=== PATIENT | female | born 1990 | race Caucasian/White ===

== ENCOUNTER → 2017-07-28 | Emergency (ER) | payer MEDICAID, OTHER ==
[~2017-07-28] MED LIST: IBUP-232 PO; PREN1CAP28 PO
--- NOTE | 2017-07-28 20:20 | PD ---
HPI Chief Complaint Decreased movement and dizziness, pelvic pressure Date Seen: Jul 28, 2017 Time Seen: 20:16 Travel History International Travel<30 Days: No Contact w/Intl Traveler<30Days: No Known Affected Area: No History of Present Illness HPI 26-year-old who is at 34 weeks gestation comes in complaining of decreased movement today associated with dizziness. Mild nausea but she is able to tolerate fluids well and she has normal appetite. She feels as though she is coming down with an upper respiratory infection and is demonstrating a mild cough but has been afebrile at home and no other symptoms, although other members of her family have also been symptomatic. Patient states that she's had good movement since arrival. Denies obstetrical complications this and she has and another appointment this Friday Weeks Gestation: 34 Para: 3 : 4 History Past Medical History Medical History: Denies Significant Hx Obstetric History Obstetric History Spontaneous vaginal delivery 3 Past Surgical History Surgical History: No Previous Surgery Family History Family History: Negative Social History Alcohol Use: No Tobacco Use: No Substance Abuse: No Review of Systems Except as stated in HPI: all other systems reviewed are Neg Physical Exam Narrative GENERAL: Well-nourished, well-developed patient. SKIN: Warm and dry. HEAD: Normocephalic and atraumatic. EYES: No scleral icterus. No injection or drainage. ENT: No nasal drainage noted. Mucous membranes pink. Airway patent. NECK: Supple, trachea midline. No JVD. CARDIOVASCULAR: Regular rate and rhythm without murmurs, gallops, or rubs. RESPIRATORY: Breath sounds equal bilaterally. No accessory muscle use. ABDOMEN/GI: Abdomen soft, non-tender, bowel sounds present, no rebound, no guarding Gravid to [33-] weeks size Fundal Height: [-] GENITOURINARY: External Genitalia: intact and normal in appearance BUS glands: [-Normal] Cervix: [-Posterior] Dilatation: [Closed-] Effacement: [Thick-] Station: [High-] Presentation: [-] Membranes: [intact ] Uterine Contractions: [Mild irritability-] FHT's: Category: [1-] Baseline: [140-] Reactive: [Moderate-] Variability: [Moderate-] Decels: [Absent-] EXTREMITIES: No cyanosis or edema. BACK: Nontender without obvious deformity. No CVA tenderness. NEUROLOGICAL: Awake and alert. Motor and sensory grossly within normal limits. Five out of 5 muscle strength in all muscle groups. Normal speech. Data Data Vital Signs Reviewed: Yes MDM Medical Record Reviewed: No Plan 26-year-old who is at 34 weeks gestation with discomforts of , discussed obstetrical support belt Decreased movement now normal with a category 1 heart rate tracing Will discharge with follow-up to her OB provider on Friday Reyna Mahmood MD Jul 28, 2017 20:20
== END | disposition home or self-care (01) ==
LOC: HOBED 19:09
DX: O36.8130 Decreased fetal movements, third trimester, not applicable or unspecified (principal); Z3A.34 34 weeks gestation of pregnancy
CPT/HCPCS: 99283

== ENCOUNTER 2017-09-04 02:00 | Inpatient (IN) | payer MEDICAID ==
[~2017-09-04] VITALS: Ht 162.6 cm; Wt 81.0 kg
[2017-09-04] VITALS (82 sets, daily range): BP systolic 86–130; BP diastolic 50–81; PULSE 59–141; RESP 18–20; TEMP 97.7–98.6
[2017-09-04] MEDS ORDERED: LACTATED RINGER'S 1000 ML INJ 1,000 ML IV PRN (02:43)
[2017-09-04] MEDS ORDERED: CITRIC ACID-SODIUM CITRATE LIQ 30 ML UDC PO SCH (02:45)
[2017-09-04] MEDS ORDERED: LIDOCAINE HCL 1% 50 ML VIAL INFIL PRN (02:45)
[2017-09-04] MEDS ORDERED: LIDOCAINE HCL 1% 50 ML VIAL I-DERMAL PRN (02:45)
[2017-09-04] MEDS ORDERED: SODIUM CHLORID 0.9% 500 ML INJ 500 ML IV PRN (02:45)
[2017-09-04] MEDS ORDERED: PENICILLIN G POTASSIUM INJ 5,000,000 UNITS in SODIUM CHLORIDE 0.9% INJ 100 ML IV ONE (02:45)
[2017-09-04] MEDS ORDERED: MINERAL OIL 10 ML VIAL TOPICAL PRN (02:45)
[2017-09-04] MEDS ORDERED: OXYTOCIN 30 UNITS-500ML PREMIX 500 ML IV ONE (02:45)
[2017-09-04] MEDS ORDERED: ONDANSETRON HCL 4 MG/2 ML VIAL IV PUSH PRN (02:45)
--- NOTE | 2017-09-04 02:51 | PD ---
HPI Chief Complaint contractions Date Seen: Sep 04, 2017 Time Seen: 02:48 Travel History International Travel<30 Days: No Contact w/Intl Traveler<30Days: No History of Present Illness HPI Patient is a 26 yo Female at 39/1 weeks gestation presents to OB triage due to contraction that started yesterday evening (around 7pm). Denies LOF. Endorses movement and contractions (pt not sure how frequent). Pt noted some pink vaginal fluid and reports loss mucus plug occurred last wk. Pt denies SOB, CP, RUQ pain, BARNES, N/V, fever or chills. Of note, Pt is GBS positive. Denies any complications with this . Weeks Gestation: 39 Para: 3 : 5 : 1 History Past Medical History Medical History: Denies Significant Hx Obstetric History Obstetric History - x3, no complications -1 -No complication with this - GBS positive Past Surgical History Surgical History: No Previous Surgery Family History Family History: Negative Social History Narrative Social History Pt lives with and 3 kids. Alcohol Use: No Tobacco Use: No Substance Abuse: No Allergies-Medications (Allergen,Severity, Reaction): Coded Allergies: No Known Allergies (Unverified , 09/04/17) Home Meds Reported Medications Mv & Min W/Fe Fumarat ( Multi + Dha 27-0.8-250 mg) 27 Mg Iron- 800 Mcg-250 Mg Cap, 1 TAB PO DAILY 09/04/17 Review of Systems Except as stated in HPI: all other systems reviewed are Neg (as per HPI, all other system reviewed negative) Physical Exam Narrative GENERAL: Well-nourished, well-developed patient. SKIN: Warm and dry. HEAD: Normocephalic and atraumatic. EYES: No scleral icterus. No injection or drainage. ENT: No nasal drainage noted. Mucous membranes pink. Airway patent. NECK: Supple, trachea midline. No JVD. CARDIOVASCULAR: Normal S1 and S2. Regular rate and rhythm without murmurs, gallops, or rubs. RESPIRATORY: Breath sounds equal bilaterally. No accessory muscle use. BREASTS: Bilateral exam showed no masses , no retractions, no nipple discharge. ABDOMEN/GI: Abdomen soft, non-tender, bowel sounds present, no rebound, no guarding Gravid to 39/1 weeks size GENITOURINARY: Cervix: posterior Dilatation: 4 Effacement: 80% Station: -3 Presentation: vertex Membranes: intact Uterine Contractions: present every 3min FHT's: Category: 1 Baseline: 135 Reactive: positive Variability: mod Decels: none EXTREMITIES: No cyanosis or edema. BACK: Nontender without obvious deformity. No CVA tenderness. NEUROLOGICAL: Awake and alert. Motor and sensory grossly within normal limits. Five out of 5 muscle strength in all muscle groups. Normal speech. Data Data Vital Signs Reviewed: Yes Orders Orders Ob (2e) Additional Admit Info (09/04/17 02:28) Admit To Inpatient (09/04/17 ) Code Status (09/04/17 02:43) Vital Signs (Adult) .Per protocol (09/04/17 02:43) Activity Oob Ad Leny (09/04/17 02:43) Heart (09/04/17 02:43) Amnioinfusion (09/04/17 02:43) Urinary Catheter Management .ONCE (09/04/17 02:43) Diet Liquid (09/04/17 Breakfast) Lactated Ringer's 1000 Ml Inj (Lr 1000 M (09/04/17 02:43) Lactated Ringer's 1000 Ml Inj (Lr 1000 M (09/04/17 02:43) Sodium Chlorid 0.9% 500 Ml Inj (Ns 500 M (09/04/17 02:45) Sodium Chlor 0.9% 1000 Ml Inj (Ns 1000 M (09/04/17 03:03) Lidocaine 1% Inj (50 Ml) (Xylocaine 1% I (09/04/17 02:45) Citric Acid-Sodium Citrate Liq (Bicitra (09/04/17 02:45) Ondansetron Inj (Zofran Inj) (09/04/17 02:45) Fentanyl Inj (Fentanyl Inj) (09/04/17 02:45) Fentanyl Inj (Fentanyl Inj) (09/04/17 02:45) Penicillin G Potassium Inj (Pfizerpen-G (09/04/17 02:45) Penicillin G Potassium Inj (Pfizerpen-G (09/04/17 06:45) Complete Blood Count With Diff (09/04/17 02:43) Hold Clot (09/04/17 02:43) Abo/Rh Blood Type (09/04/17 02:43) Urinalysis - C+S If Indicated (09/04/17 02:43) Type And Screen (09/04/17 02:43) Resp Oxygen Non Rebreathe Mask (09/04/17 ) ^ Epidural / Intrathecal Infus (09/04/17 02:43) Oxytocin 30 Units-500ml Premix (Pitocin (09/04/17 02:45) Lidocaine 1% Inj (50 Ml) (Xylocaine 1% I (09/04/17 02:45) Light Mineral Oil (Muri-Lube Oil) (09/04/17 02:45) Inpatient Certification (09/04/17 ) Specimen To Be Collected PRN (09/04/17 02:43) Group B Strep: Positive MDM Medical Record Reviewed: Yes Plan 26 yo F at 39/1 weeks gestation presented to OB triage with complaints of contractions. Will admit for labor 1. IUP at 39/1 -PNC ordered for GBS ppx -FHT, reassuring -FHR category 1 -fentanyl for pain -Pt found to be in active labor, will admit to L&D for labor -continue to monitor labor progression wdw Dr. Witt sdw Bishop Mcpherson MD, R1 Sep 04, 2017 02:51
[2017-09-04 02:54] LABS: BASOPHIL % 0.3 % (0.0-2.0); EOSINOPHIL # 0.1 TH/MM3 (0-0.4); EOSINOPHIL % 1.2 % (0.0-4.0); HEMO FLAGS DIFF FINAL; LYMPH % 21.3 % (9.0-44.0); LYMPHOCYTE # 2.4 TH/MM3 (1.0-4.8); MEAN CELL VOLUME 79.2 FL (80.0-100.0); MEAN CORPUSCULAR HEMOGLOBIN 26.5 PG (27.0-34.0); MEAN CORPUSCULAR HGB CONC 33.4 % (32.0-36.0); MONO % 6.8 % (0.0-8.0); NEUT % 70.4 % (16.0-70.0); PLATELET COUNT 274 TH/MM3 (150-450); RED BLOOD COUNT 3.79 MIL/MM3 (4.00-5.30); RED CELL DISTRIBUTION WIDTH 14.7 % (11.6-17.2); WHITE BLOOD COUNT 11.3 TH/MM3 (4.0-11.0)
[2017-09-04 02:55] LABS: BACTERIA, URINE RARE /hpf; BLOOD, URINE NEG (NEG); COMMENT (UR) CULT NOT INDICATED; CULTURE IF INDICATED CULT NOT INDICATED; GLUCOSE,URINE NEG (NEG); KETONE, URINE NEG (NEG); MUCUS URINE FEW /lpf (OCC); NITRITE,URINE NEG (NEG); PH, URINE 6.5 (5.0-8.5); SQUAMOUS EPITHELIAL CELL URINE 1 /hpf (0-5); URINE COLOR LIGHT-YELLOW (YELLW/STRAW)
[2017-09-04] MEDS ORDERED: SODIUM CHLOR 0.9% 1000 ML INJ 1,000 ML IV PRN (03:03)
[2017-09-04] MEDS ORDERED: fentaNYL 2MCG-BUPIV 0.125% INJ 100 ML ONE (03:06)
[2017-09-04] MEDS ORDERED: PREN1CAP28 PO (03:15)
[2017-09-04] MEDS: LACTATED RINGER'S 1000 ML INJ 1,000 ML IV SCH ×2 (04:20→04:30)
--- NOTE | 2017-09-04 04:30 | HHI.HP ---
History & Physical H&P HPI HPI Chief Complaint contractions Date Seen: Sep 04, 2017 Time Seen: 02:48 Travel History International Travel<30 Days: No Contact w/Intl Traveler<30Days: No History of Present Illness HPI Patient is a 26 yo Female at 39/1 weeks gestation presents to OB triage due to contraction that started yesterday evening (around 7pm). Denies LOF. Endorses movement and contractions (pt not sure how frequent). Pt noted some pink vaginal fluid and reports loss mucus plug occurred last wk. Pt denies SOB, CP, RUQ pain, BARNES, N/V, fever or chills. Of note, Pt is GBS positive. Denies any complications with this . Weeks Gestation: 39 Para: 3 : 5 : 1 History (Limited) History Past Medical History Medical History: Denies Significant Hx Obstetric History Obstetric History - x3, no complications -1 -No complication with this - GBS positive Past Surgical History Surgical History: No Previous Surgery Family History Family History: Negative Social History Narrative Social History Pt lives with and 3 kids. Alcohol Use: No Tobacco Use: No Substance Abuse: No Allergies-Medications Allergies-Medications (Allergen,Severity, Reaction): Coded Allergies: No Known Allergies (Unverified , 09/04/17) Home Meds Reported Medications Mv & Min W/Fe Fumarat ( Multi + Dha 27-0.8-250 mg) 27 Mg Iron- 800 Mcg-250 Mg Cap, 1 TAB PO DAILY 09/04/17 ROS Review of Systems Except as stated in HPI: all other systems reviewed are Neg (as per HPI, all other system reviewed negative) Physical Exam Physical Exam Narrative GENERAL: Well-nourished, well-developed patient. SKIN: Warm and dry. HEAD: Normocephalic and atraumatic. EYES: No scleral icterus. No injection or drainage. ENT: No nasal drainage noted. Mucous membranes pink. Airway patent. NECK: Supple, trachea midline. No JVD. CARDIOVASCULAR: Normal S1 and S2. Regular rate and rhythm without murmurs, gallops, or rubs. RESPIRATORY: Breath sounds equal bilaterally. No accessory muscle use. BREASTS: Bilateral exam showed no masses , no retractions, no nipple discharge. ABDOMEN/GI: Abdomen soft, non-tender, bowel sounds present, no rebound, no guarding Gravid to 39/1 weeks size GENITOURINARY: Cervix: posterior Dilatation: 4 Effacement: 80% Station: -3 Presentation: vertex Membranes: intact Uterine Contractions: present every 3min FHT's: Category: 1 Baseline: 135 Reactive: positive Variability: mod Decels: none EXTREMITIES: No cyanosis or edema. BACK: Nontender without obvious deformity. No CVA tenderness. NEUROLOGICAL: Awake and alert. Motor and sensory grossly within normal limits. Five out of 5 muscle strength in all muscle groups. Normal speech. Data Data Data Vital Signs Reviewed: Yes Orders Orders Ob (2e) Additional Admit Info (09/04/17 02:28) Admit To Inpatient (09/04/17 ) Code Status (09/04/17 02:43) Vital Signs (Adult) .Per protocol (09/04/17 02:43) Activity Oob Ad Leny (09/04/17 02:43) Heart (09/04/17 02:43) Amnioinfusion (09/04/17 02:43) Urinary Catheter Management .ONCE (09/04/17 02:43) Diet Liquid (09/04/17 Breakfast) Lactated Ringer's 1000 Ml Inj (Lr 1000 M (09/04/17 02:43) Lactated Ringer's 1000 Ml Inj (Lr 1000 M (09/04/17 02:43) Sodium Chlorid 0.9% 500 Ml Inj (Ns 500 M (09/04/17 02:45) Sodium Chlor 0.9% 1000 Ml Inj (Ns 1000 M (09/04/17 03:03) Lidocaine 1% Inj (50 Ml) (Xylocaine 1% I (09/04/17 02:45) Citric Acid-Sodium Citrate Liq (Bicitra (09/04/17 02:45) Ondansetron Inj (Zofran Inj) (09/04/17 02:45) Fentanyl Inj (Fentanyl Inj) (09/04/17 02:45) Fentanyl Inj (Fentanyl Inj) (09/04/17 02:45) Penicillin G Potassium Inj (Pfizerpen-G (09/04/17 02:45) Penicillin G Potassium Inj (Pfizerpen-G (09/04/17 06:45) Complete Blood Count With Diff (09/04/17 02:43) Hold Clot (09/04/17 02:43) Abo/Rh Blood Type (09/04/17 02:43) Urinalysis - C+S If Indicated (09/04/17 02:43) Type And Screen (09/04/17 02:43) Resp Oxygen Non Rebreathe Mask (09/04/17 ) ^ Epidural / Intrathecal Infus (09/04/17 02:43) Oxytocin 30 Units-500ml Premix (Pitocin (09/04/17 02:45) Lidocaine 1% Inj (50 Ml) (Xylocaine 1% I (09/04/17 02:45) Light Mineral Oil (Muri-Lube Oil) (09/04/17 02:45) Inpatient Certification (09/04/17 ) Specimen To Be Collected PRN (09/04/17 02:43) Group B Strep: Positive MDM MDM Medical Record Reviewed: Yes Plan 26 yo F at 39/1 weeks gestation presented to OB triage with complaints of contractions. Will admit for labor 1. IUP at 39/1 -PNC ordered for GBS ppx -FHT, reassuring -FHR category 1 -fentanyl for pain -Pt found to be in active labor, will admit to L&D for labor -continue to monitor labor progression wdw Dr. Witt sdw Bishop Mcpherson MD, R1 Sep 04, 2017 04:30
[2017-09-04] MEDS ORDERED: PENICILLIN G POTASSIUM INJ 2,500,000 UNITS in SODIUM CHLORIDE 0.9% INJ 100 ML IV SCH (06:45)
[2017-09-04] MEDS ORDERED: OXYTOCIN 30 UNITS-500ML PREMIX 500 ML IV SCH ×2 (07:45→10:45)
--- NOTE | 2017-09-04 10:09 | PD.LABORPN ---
Subjective Subjective s/p epidural. Doing well. Making progress from 6cm to 7cm. No complaints at this time. Objective Vital Signs Vital Signs Date Time Temp Pulse Resp B/P (MAP) Pulse Ox O2 Delivery O2 Flow Rate FiO2 09/04/17 08:35 78 09/04/17 08:30 74 117/76 (90) 09/04/17 08:30 72 09/04/17 08:25 87 09/04/17 08:20 85 09/04/17 08:16 80 86/65 (72) 09/04/17 08:15 81 09/04/17 08:10 63 09/04/17 08:05 71 09/04/17 08:01 85 112/74 (87) 09/04/17 08:00 77 09/04/17 07:45 72 112/73 (86) 09/04/17 07:40 81 09/04/17 07:35 81 09/04/17 07:30 69 09/04/17 07:30 109/63 (78) 09/04/17 07:16 18 09/04/17 07:15 72 114/75 (88) 09/04/17 07:00 65 115/69 (84) 09/04/17 06:55 75 09/04/17 06:45 75 109/73 (85) 09/04/17 06:35 71 09/04/17 06:30 64 115/72 (86) 09/04/17 06:25 67 09/04/17 06:15 70 111/68 (82) 09/04/17 06:10 74 09/04/17 06:05 90 09/04/17 06:00 115/63 (80) 09/04/17 05:55 98.2 18 09/04/17 05:55 69 09/04/17 05:45 110/58 (75) 09/04/17 05:40 68 09/04/17 05:36 118/68 (85) 09/04/17 05:24 18 09/04/17 05:20 78 09/04/17 05:15 65 119/73 (88) 09/04/17 05:10 71 09/04/17 05:05 70 09/04/17 05:01 122/74 (90) 09/04/17 04:55 75 09/04/17 04:52 18 09/04/17 04:50 77 09/04/17 04:45 121/76 (91) 09/04/17 04:40 76 09/04/17 04:35 78 09/04/17 04:25 76 09/04/17 04:24 78 112/72 (85) 09/04/17 04:10 75 09/04/17 04:05 79 09/04/17 04:00 78 114/72 (86) 09/04/17 04:00 18 09/04/17 03:55 74 09/04/17 03:45 121/76 (91) 09/04/17 03:35 80 09/04/17 03:35 85 114/68 (83) 09/04/17 03:33 119/74 (89) 09/04/17 03:30 118/73 (88) 09/04/17 03:27 100 130/71 (90) 09/04/17 03:26 129/74 (92) 09/04/17 03:21 108 09/04/17 03:10 97 09/04/17 03:06 18 Objective Pelvic Exam: Cervix:Mid Dilatation: 7cm Effacement: 100% Station: 0 Presentation: vertex Membranes: AROM Uterine Contractions: every 3-4min FHT's: Category: 1 Baseline: 120 Reactive: yes Variability: moderate Decels: N Weeks Gestation: 39 Gest Age Assessed Date: Sep 04, 2017 Gest Age Assessed Time: 10:03 Pt started active labor?: Yes Active labor start date: Sep 04, 2017 Active labor start time: 10:05 Medical induction of labor?: No Artificial rupture of membrane: Yes Artificial ROM date: Sep 04, 2017 Artifical ROM time: 05:00 Assessment/Plan Assessment and Plan 26 yo F at 39/1 weeks gestation in active labor 1. IUP at 39/1 -FHT, reassuring -FHR category 1 2. GBS pos. PCN administered at 03:45 3. Active labor -making good progression to 7cm -anticipate sdw Kelly Wynn MD R1 Sep 04, 2017 10:09
[2017-09-04] MEDS ORDERED: DOCUSATE SODIUM 50 MG/SENNA 8.6 MG TAB PO PRN (10:45)
[2017-09-04] MEDS ORDERED: ZOLPIDEM TARTRATE 5 MG TAB PO PRN (10:45)
[2017-09-04] MEDS ORDERED: WITCH HAZEL 50%/GLYCERIN 12.5% 40 PAD JAR TOPICAL PRN (10:45)
[2017-09-04] MEDS ORDERED: ACETAMINOPHEN 325 MG TAB PO PRN (10:45)
[2017-09-04] MEDS ORDERED: BENZOCAINE 20% TOPICAL SPRAY 60 ML CAN TOPICAL PRN (10:45)
[2017-09-04] MEDS ORDERED: ONDANSETRON ODT 4 MG TAB PO PRN (10:45)
[2017-09-04] MEDS ORDERED: SODIUM CHLORIDE 0.9% FLUSH 10 ML FLUSH IV FLUSH PRN (10:45)
[2017-09-04] MEDS ORDERED: oxyCODONE/ACETAMINOPHEN 5 MG/325 MG TAB PO PRN (10:45)
[2017-09-04] MEDS ORDERED: SODIUM CHLORIDE 0.9% FLUSH 10 ML FLUSH IV FLUSH SCH (10:45)
[2017-09-04] MEDS ORDERED: ALUMINUM/MAGNESIUM/SIMETH 30 ML CUP PO PRN (10:45)
--- NOTE | 2017-09-04 10:49 | PD.OB.DELI ---
Weeks gestation: 39 Gest age assessed date: Sep 04, 2017 Gest age assessed time: 10:03 Pt started active labor?: Yes Active labor start date: Sep 04, 2017 Active labor start time: 10:05 Medical induction of labor?: No Artificial rupture of membrane: Yes Artificial ROM date: Sep 04, 2017 Artifical ROM time: 05:00 Anesthesia: Epidural Episiotomy: None Vaginal Delivery: Normal, Spontaneous Presentation: Occiput anterior Nuchal Cord: None Delayed cord clamping (45 sec): Yes : Male Delivery date: Sep 04, 2017 Delivery time: 10:37 One Minute : 9 Five Minute : 9 Weight: 3645 Placenta: Spontaneous delivery Laceration: No lacerations Estimated blood loss: 100cc Additional Information 26 yr old w/ no complications, GBS positive w/ PCN x2 > 4 hours Kelly Sams MD R1 Sep 04, 2017 10:49
[2017-09-04] MEDS ORDERED: DO NOT ADMINISTER ANTICOAGULANTS PRN (11:30)
[2017-09-04] MEDS ORDERED: fentaNYL 2MCG-BUPIV 0.125% 100 ML EPIDURAL SCH (11:30)
[2017-09-04] MEDS ORDERED: ePHEDrine/NS 25 MG/5 ML SYR IV PUSH PRN (11:30)
[2017-09-04] MEDS ORDERED: NO SYSTEM NARCOTICS PRN (11:30)
[2017-09-04] MEDS ORDERED: DIPHTH/TETANUS/ACEL PERTUSSIS (BOOSTER) 0.5 ML VIAL/PFS IM ONE (16:00)
[2017-09-04] MEDS ORDERED: MEASLES, MUMPS, RUBELLA VACCINE 0.5 ML VIAL SQ ONE (16:00)
[2017-09-04] MEDS: IBUPROFEN 600 MG TAB PO PRN (18:01)
[2017-09-04] MEDS: oxyCODONE/ACETAMINOPHEN 5 MG/325 MG TAB PO PRN (20:10)
[2017-09-05] MEDS: IBUPROFEN 600 MG TAB PO PRN ×2 (03:24→13:35)
[2017-09-05] MEDS: oxyCODONE/ACETAMINOPHEN 5 MG/325 MG TAB PO PRN ×3 (03:24→16:02)
[2017-09-05 07:30] VITALS: BP 97/68; PULSE 54; RESP 17; TEMP 97.3
--- NOTE | 2017-09-05 08:58 | HHI.OB ---
Subjective Remarks 26 year old female s/p at 39/1 wks gestation, PPD1. AFVSS. Patient reports she is feeling well. Bleeding is decreasing and pain is well- controlled. She is formula feeding and bonding well with baby. Ambulating without difficulties. She is tolerating a diet without nausea or vomiting. She has not had a bowel movement. She has not passed gas. Denies chest pain, dysuria , shortness of breath, or calf pain. (Kelly Sams MD R1) Objective Vitals/I&O Vital Signs Date Time Temp Pulse Resp B/P (MAP) Pulse Ox O2 Delivery O2 Flow Rate FiO2 09/05/17 07:30 97.3 09/05/17 07:30 54 17 97/68 (78) 09/04/17 21:15 98.5 59 20 109/67 (81) 09/04/17 16:00 98.6 66 18 102/58 (73) 09/04/17 12:28 67 116/71 (86) 09/04/17 11:45 64 111/71 (84) 09/04/17 11:30 68 121/74 (90) 09/04/17 11:15 73 108/70 (83) 09/04/17 11:00 80 115/62 (79) 09/04/17 10:46 88 118/66 (83) 09/04/17 10:45 18 09/04/17 10:31 101 128/50 (76) 09/04/17 10:15 78 118/69 (85) 09/04/17 10:00 97.7 09/04/17 10:00 73 110/69 (83) 09/04/17 09:50 76 09/04/17 09:45 141 113/72 (86) 09/04/17 09:45 71 09/04/17 09:40 71 09/04/17 09:35 89 09/04/17 09:30 77 09/04/17 09:30 101/81 (88) 09/04/17 09:25 86 09/04/17 09:20 68 09/04/17 09:15 105/66 (79) 09/04/17 09:15 82 09/04/17 09:10 72 09/04/17 09:05 69 09/04/17 09:00 89 09/04/17 09:00 109/70 (83) Objective Remarks GENERAL: Well-nourished, well-developed patient. CARDIOVASCULAR: Regular rate and rhythm without murmurs, gallops, or rubs. RESPIRATORY: Breath sounds equal bilaterally. No accessory muscle use. ABDOMEN/GI: Abdomen soft, non-tender. Fundus: Firm, non-tender at umbilicus. GENITOURINARY: Light to moderate bleeding. EXTREMITIES: No cyanosis or edema, non-tender, without signs of DVT. Medications and IVs Current Medications Medications (Trade) Dose Ordered Sig/Chantel Route Start Time Stop Time Status Last Admin (NS Flush) 2 ml BID IV FLUSH 09/04/17 10:45 (NS Flush) 2 ml UNSCH PRN IV FLUSH 09/04/17 10:45 (Tylenol) 650 mg Q4H PRN PO 09/04/17 10:45 (Motrin) 600 mg Q6H PRN PO 09/04/17 10:45 09/05/17 03:24 (Percocet 5-325 Mg) 1 tab Q4H PRN PO 09/04/17 10:45 09/05/17 07:35 (Percocet 5-325 Mg) 2 tab Q4H PRN PO 09/04/17 10:45 (Americaine 20% Top Spr) 1 spray Q4H PRN TOPICAL 09/04/17 10:45 (Tucks Pads) 1 applic QID PRN TOPICAL 09/04/17 10:45 (Shona-Colace) 2 tab Q12H PRN PO 09/04/17 10:45 (Ambien) 5 mg HS PRN PO 09/04/17 10:45 (Mag-Al Plus Susp Liq) 15 ml Q8H PRN PO 09/04/17 10:45 (Zofran Odt) 4 mg Q6H PRN PO 09/04/17 10:45 (Kelly Sams MD R1) Assessment/Plan Assessment and Plan 26 yo female s/p , PPD 1 - AFVSS - Continue routine care - Motrin PRN pain - Encourage OOB - Pelvic rest x 6 wks. Will need 1 week incision check. - Contraception: 2 week f/u with [employer] [facility]PR[employer]ICE for tubal - Anticipate D/C today (Kelly Sams MD R1) Attending Attestation The exam, history, and the medical decision-making described in the above note were completed with the assistance of the resident provider. I reviewed and agree with the findings presented. I attest that I had a [id number] encounter with the patient on the same day, and personally performed and documented my assessment and findings in the medical record. (Gregory Salas MD) Kelly Sasm MD R1 Sep 05, 2017 08:58 Gregory Salas MD Sep 05, 2017 09:13
[2017-09-05] MEDS ORDERED: IBUP-232 PO (09:00)
--- NOTE | 2017-09-05 09:01 | HHI.DCPOC ---
Discharge Care Plan Diagnosis: (1) Normal vaginal delivery Report Symptoms to Your Doctor -Temperature above 100.5 degrees -Redness, of incision or excessive or foul smelling drainage -Unusual pain or calf pain -Increased vaginal bleeding -Painful or difficulty urinating -Feelings of extreme sadness or anxiety after 2 weeks Goals to Promote Your Health * To prevent worsening of your condition and complications * To maintain your health at the optimal level Directions to Meet Your Goals Take your medications as prescribed Follow your dietary instruction Follow activity as directed Ensure plenty of rest for recovery Drink fluids for hydration Keep your appointments as scheduled Take your immunizations and boosters as scheduled If your symptoms worsen call your PCP, if no PCP go to Urgent Care Center or Emergency Room Smoking is Dangerous to Your Health. Avoid second hand smoke Call the 24-hour crisis hotline for domestic abuse at Дмитрий Yuen MD R2 Sep 05, 2017 09:01
[2017-09-05 16:00] VITALS: RESP 18
== END 2017-09-05 17:36 | disposition home or self-care (01) | DRG 775 ==
LOC: HOBED 02:00 → H2EB 02:28 → H1EA 12:43
PROVIDERS: ADMIT Obstetrics & Gynecology Maternal & Fetal Medicine; ATTEND Obstetrics & Gynecology Maternal & Fetal Medicine
PROC: 10E0XZZ Delivery of Products of Conception, External Approach (ICD-10-PCS; principal; 2017-09-04)
PROC: 10907ZC Drainage of Amniotic Fluid, Therapeutic from Products of Conception, Via Natural or Artificial Opening (ICD-10-PCS; 2017-09-04)
DX: O99.824 Streptococcus B carrier state complicating childbirth (principal); Z37.0 Single live birth; Z3A.39 39 weeks gestation of pregnancy
CPT/HCPCS: 59025; 81001; 85025; 86900; 86901; J2405; J2540; J2590; J7120

== ENCOUNTER → 2017-11-13 | Outpatient (CLI) | payer MEDICAID ==
[~2017-11-13] MED LIST changes: +NUVAMIS VAGINAL
[2017-11-13 14:23] LABS: AUTOMATED NEUTROPHIL # 2.7 TH/MM3 (1.8-7.7); BASOPHIL % 0.7 % (0.0-2.0); EOSINOPHIL # 0.1 TH/MM3 (0-0.4); EOSINOPHIL % 1.7 % (0.0-4.0); HEMATOCRIT 37.4 % (35.0-46.0); HEMOGLOBIN 11.9 GM/DL (11.6-15.3); MEAN CELL VOLUME 81.5 FL (80.0-100.0); MEAN CORPUSCULAR HEMOGLOBIN 25.9 PG (27.0-34.0); MEAN CORPUSCULAR HGB CONC 31.9 % (32.0-36.0); MEAN PLATELET VOLUME 8.3 FL (7.0-11.0); MONO % 7.8 % (0.0-8.0); MONOCYTE # 0.4 TH/MM3 (0-0.9); NEUT % 51.8 % (16.0-70.0); PLATELET COUNT 263 TH/MM3 (150-450); RED BLOOD COUNT 4.59 MIL/MM3 (4.00-5.30); RED CELL DISTRIBUTION WIDTH 17.9 % (11.6-17.2); WHITE BLOOD COUNT 5.2 TH/MM3 (4.0-11.0)
[2017-11-13 14:35] LABS: ALBUMIN 3.5 GM/DL (3.4-5.0); ALT (GPT) 28 U/L (10-53); AST (GOT) 19 U/L (15-37); BICARBONATE 27.2 MEQ/L (21.0-32.0); BLOOD UREA NITROGEN 15 MG/DL (7-18); CALCIUM 8.5 MG/DL (8.5-10.1); CHLORIDE 107 MEQ/L (98-107); CREATININE 0.67 MG/DL (0.50-1.00); GLOMERULAR FILTRATION RATE 106 ML/MIN (>89); GLUCOSE,FASTING 65 MG/DL (74-99); SODIUM (NA) 142 MEQ/L (136-145)
[2017-11-13 14:38] LABS: BACTERIA, URINE RARE /hpf; BILIRUBIN, URINE NEG (NEG); BLOOD, URINE NEG (NEG); GLUCOSE,URINE NEG (NEG); KETONE, URINE NEG (NEG); MUCUS URINE FEW /lpf (OCC); NITRITE,URINE NEG (NEG); PH, URINE 5.5 (5.0-8.5); SQUAMOUS EPITHELIAL CELL URINE <1 /hpf (0-5); URINE COLOR COLORLESS (YELLW/STRAW); URINE LEUKOCYTE ESTERASE SMALL (NEG)
[2017-11-13 14:39] LABS: ALKALINE PHOSPHATASE 65 U/L (45-117); TOTAL BILIRUBIN ADULT 0.2 MG/DL (0.2-1.0); TOTAL PROTEIN 7.1 GM/DL (6.4-8.2)
== END ==
LOC: CPRE 13:51
PROVIDERS: ATTEND Obstetrics & Gynecology Gynecology
DX: Z01.812 Encounter for preprocedural laboratory examination (principal)
CPT/HCPCS: 36415; 80053; 81001; 84703; 85025

== ENCOUNTER → 2017-11-26 | Day surgery (SDC) | payer MEDICAID ==
--- NOTE | 2017-11-13 19:21 | MH ---
cc: RAOUL MILIAN CHRISTOPHER DATE OF ADMISSION 11/26/2017 ADMITTING DIAGNOSIS Surgical sterilization, laparoscopic DATE OF 90 HISTORY OF PRESENT ILLNESS The patient is a 27-year-old white female 4, para 3 who has completed childbearing and wants to proceed with surgical sterilization. PAST MEDICAL HISTORY Negative for heart, lung, liver disease, hypertension, diabetes, stroke. PAST SURGICAL HISTORY None. OBSTETRICAL HISTORY Three vaginal deliveries SOCIAL HISTORY with good social support, college student, works full-time. FAMILY HISTORY Noncontributory ALLERGIES None MEDICATIONS Vaginal ring for contraception REVIEW OF SYSTEMS As above. No chest pain, orthopnea, PND, no orthopnea, fever, chills. No vaginal bleeding or discharge. GYNECOLOGIC HISTORY No STDs or irregular Pap smears. PHYSICAL EXAMINATION VITAL SIGNS: On exam she is afebrile. Vital signs stable. Blood pressure is 120/70, height is 5 feet 3 inches, weight 151, BMI is 26.8. GENERAL: Patient is alert and oriented in no acute distress. No sign of cognitive dysfunction or depression. HEENT: Within normal limits. NECK: Supple. No JVD. CHEST: Clear. HEART: Regular rate and rhythm. ABDOMEN: Soft, nontender. No hepatosplenomegaly. No CVA tenderness. PELVIC: Will be detailed under anesthesia. EXTREMITIES: Normal skin without rashes. NEUROLOGIC: Nonfocal. No DVT signs. ASSESSMENT Patient with multiparity desires sterilization. The patient and I discussed extensively the risks, benefits and alternatives of planned procedure including damage to surrounding organs, bleeding, infection, alternative methods of contraception, male methods of contraception as well as issues regarding failure rates as high as 1-200 based on her age. She is also aware the procedure is irreversible and will render her infertile if all goes according to plan. PLAN At this point, we anticipate outpatient procedure. We will use DVT prophylaxis with sequential compression device and antibiotic prophylaxis with Ancef 2 grams IV. MD ALEXSANDER Day/ /5:25 PM /6:55 PM
[~2017-11-26] VITALS: Ht 162.6 cm; Wt 71.0 kg
[~2017-11-26] MED LIST changes: +*morphine SULFATE 10 MG/ML PERIprocedure ONLY ONE; +ACETAMINOPHEN 1000 MG/100 ML 100 ML IV ONE; +CHLORHEXIDINE GLUCONATE 2 % 1 PACK (2 CLOTHS) TOPICAL PRN; +DEXAMETHASONE SOD PHOS 4 MG/ML VIAL IV ONE; +DO NOT ADM ANY ANTICOAGULANT DRUGS PRN; +GLYCOPYRROLATE 1 MG/5 ML SYRINGE IV PUSH ONE; -IBUP-232 PO; +KETOROLAC TROMETHAMINE 30 MG/ML (IVP) VIAL IV PUSH ONE; +KETOROLAC TROMETHAMINE 30 MG/ML (IVP) VIAL IV PUSH PRN; +LACTATED RINGER'S 1000 ML IV PRN; +LIDOCAINE 0.5%/EPINEPHrine 1:200,000 SOLN 50 ML VIAL ONE; +LIDOCAINE HCL 1% PF 5 ML SYRINGE OTHER ONE; +METOPROLOL TARTRATE 25 MG TAB PO PRN; +NEOSTIGMINE 5 MG/5 ML SYRINGE IV PUSH ONE; +ONDANSETRON HCL 4 MG/2 ML VIAL IV ONE; +ONDANSETRON HCL 4 MG/2 ML VIAL IV PRN; +POVIDONE IODINE 5% (ANTISEPSIS KIT) 4 APPLICATIONS EACH NARE PRN; -PREN1CAP28 PO; +PROPOFOL 200 MG/20 ML AMP IV ONE; +ROCURONIUM INJ 50 MG/5 ML SYRINGE IV PUSH ONE; +SODIUM CHLORID 0.9% 500 ML IV PRN; +ceFAZolin 2 GM PREMIX 50 ML IV SCH; +traMADol HCL 50 MG TAB PO PRN
[2017-11-26 11:55] VITALS: BP 118/69; PULSE 66; RESP 16; O2SAT 100
--- NOTE | 2017-11-27 06:17 | MP ---
cc: GILBERT ANGLIN MD,DAVID MILIAN,RAOUL Garcia MD DATE OF SURGERY 11/26/2017 PREOPERATIVE DIAGNOSIS Multiparity. Desires sterilization. POSTOPERATIVE DIAGNOSES Multiparity. Desires sterilization. PROCEDURE Bilateral salpingectomy. SURGEON MD Christian ANESTHESIA General endotracheal per ET tube. ADOBE MAKER [facility] staff x1. FLUIDS 1000 cc crystalloid FINDINGS Genitalia normal. POP-Q score: Aa is -2, Ap is -1. Point C is -8. Total vaginal length is 10. Genital hiatus is 8. Perineal body is 5. Uterus is anteverted and flexed, mobile. Adnexa structures are normal, mobile ovaries and tubes. The appendix is normal. Upper abdomen normal. Some evidence of possible early diverticulosis in the sigmoid colon, otherwise unremarkable. SPECIMENS Right and left tubes. COMPLICATIONS None. DISPOSITION To the recovery room stable. COUNTS Needle and sponge counts correct. DRAINS Odom catheter. ANTIBIOTIC PROPHYLAXIS Ancef 2 grams. DVT PROPHYLAXIS Sequential compression device. TIME-OUT PROCEDURE Time-out and identification per protocol. SUMMARY OF INDICATIONS FOR PROCEDURE The patient with multiparity, desires sterilization. She was apprised of the risks, benefits and alternatives of the planned procedure including operative risks as well as risk of failure to provide contraception. OPERATIVE PROCEDURE The patient was taken to the operating theatre, prepared and draped in fashion appropriate for the planned procedure. She was in dorsal lithotomy position with careful attention paid to placement of legs in stirrups to avoid undue stress to sensitive neurovascular structures. Above findings noted. Neurovascular integrity documented. Odom catheter was placed. The patient had extensive art work on the abdomen but we were able to avoid this while we were placing our trocars. We had three trocar placements. The umbilicus was infiltrated with epinephrine/lidocaine solution. A 5-mm scope was placed under direct visualization. Gas was insufflated and the above findings noted. Auxiliary trocars were placed, an 8-mm trocar suprapubically and a 5-mm in the left lower quadrant. All these were done using a needle as a guide and there was no undue bleeding or damage to underlying structures. The tubes were easily identified. We used harmonic energy to come across the mesosalpinx on the left without complications. There was good hemostasis on the right side. The tube was taken down some with similar technique using harmonic energy. Hemostasis was assured with and without gas pressure. We inspected the pelvis. No abnormal findings except for perhaps and diverticulosis of the sigmoid colon. Trocars were inspected. The camera was replaced to ensure the umbilical trocar. There was no damage to any structures here. At this point the procedure was concluded. Gas was expressed. All areas were hemostatic. The skin was closed with 3-0 Monocryl and Dermabond. The patient tolerated the procedure well. Should she have issues with pelvic floor disorder as a result of the relatively genital hiatus, she may be a good candidate for a perineoplasty and pelvic repair. MD ALEXSANDER Day/GURPREET /11:04 AM /6:00 AM
== END | disposition home or self-care (01) ==
LOC: HSDC 08:12
PROVIDERS: ATTEND Obstetrics & Gynecology Gynecology
DX: Z30.2 Encounter for sterilization (principal); N83.8 Other noninflammatory disorders of ovary, fallopian tube and broad ligament
CPT/HCPCS: 00851; 58670; 88302; J0131; J0690; J1100; J1885; J2270; J2405; J2710; J3010; J7120